=== PATIENT | female | born 1945 | race Caucasian/White ===

== ENCOUNTER 2017-04-26 13:02 | Inpatient (IN) | payer MEDICARE, BC ==
--- NOTE | 2017-04-26 14:04 | EDM.PDOC ---
ED HPI GENERAL MEDICAL PROBLEM - General Chief Complaint: Lower Extremity Injury/Pain Stated Complaint: LT LEG NUMB Time Seen by Provider: 04/26/17 13:50 Source of Information: Reports: Patient History Limitations: Reports: Other (No old records available) - History of Present Illness INITIAL COMMENTS - FREE TEXT/NARRATIVE: 71 yo female who smoked until very recently presents with several days of somewhat progressive L distal leg and foot numbness, aching, and a foot drop. Has not fallen, but is more unsteady on her feet than normal. The foot drop has made her almost trip a few times. Is from [place] and here. Has no local doctor. Is going home to [place] on Sunday. No HUTCHISON. Has a prosthetic heart valve and is on Plavix. No PHx of CVA. L calf also hurts when she walks. Foot drop tends to wax and wane. Has a pHx of anemia and thinks she may be borderline anemic now. Onset: Gradual Onset Date: 04/20/17 Duration: Day(s): Location: Reports: Lower Extremity, Left Quality: Reports: Ache (worse at night. ) Severity: Moderate Improves with: Reports: None Worsens with: Reports: Other (? time) Context: Reports: Other (Life long smoker) Associated Symptoms: Reports: Weakness (to dorsiflexion of L foot). 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 (see below) (none) Left Leg Pain Score (Numeric/FACES): 5 - Related Data Allergies Allergy/AdvReac Type Severity Reaction Status Date / Time No Known Allergies Allergy Verified 04/26/17 13:32 Home Meds: Home Meds Aspirin 325 mg PO DAILY 04/26/17 [History] Clopidogrel [Plavix] 75 mg PO DAILY 04/26/17 [History] Losartan/Hydrochlorothiazide [Losartan-HCTZ 50-12.5 MG] 1 each PO DAILY [History] Past Medical History HEENT History: Reports: Cataract Cardiovascular History: Reports: Heart Murmur, Hypertension 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) Other OB/BYN History: uterine tumors Oncologic (Cancer) History: Reports: Uterine Other Oncologic History: benign tumor - Past Surgical History HEENT Surgical History: Reports: Cataract Surgery Cardiovascular Surgical History: Reports: Valve Replacement Female Surgical History: Reports: Hysterectomy, Salpingo-Oophorectomy Social & Family History - Tobacco Use Smoking Status *Q: Former Smoker Used Tobacco, but Quit: Yes Month Tobacco Last Used: 2 days ago - Caffeine Use Caffeine Use: Reports: Coffee - Recreational Drug Use Recreational Drug Use: No Review of Systems - Review of Systems Review Of Systems: See Below Constitutional: Reports: No Symptoms Eyes: Reports: No Symptoms Ears: Reports: No Symptoms, Previous Injury Mouth/Throat: Reports: No Symptoms Respiratory: Reports: No Symptoms Cardiovascular: Reports: No Symptoms GI/Abdominal: Reports: No Symptoms Genitourinary: Reports: No Symptoms Musculoskeletal: Reports: Leg Pain (distal L leg ache, worse at night) Skin: Reports: No Symptoms Neurological: Reports: Numbness (L distal leg and foot.), Difficulty Walking ( due to L foot drop), Gait Disturbance (more unsteady recently.). Denies: Confusion, Dizziness, Headache, Seizure, Syncope, Trouble Speaking, Change in Speech Psychiatric: Reports: No Symptoms ED EXAM, GENERAL - Physical Exam Exam: See Below Exam Limited By: No Limitations General Appearance: Alert, WD/WN, No Apparent Distress Eye Exam: Bilateral Eye: EOMI, Normal Inspection, PERRL Ears: Normal External Exam, Normal Canal, Hearing Grossly Normal, Normal TMs Ear Exam: Bilateral Ear: Auricle Normal, Canal Normal, TM normal Nose: Normal Inspection, Normal Mucosa, No Blood Throat/Mouth: Normal Inspection, Normal Lips, Normal Teeth, Normal Oropharynx, Normal Voice, No Airway Compromise Head: Atraumatic, Normocephalic Neck: Normal Inspection, Supple, Other (No carotid bruits) Respiratory/Chest: No Respiratory Distress, Lungs Clear, Normal Breath Sounds, No Accessory Muscle Use Cardiovascular: Regular Rate, Rhythm, No Edema, No JVD, Systolic Murmur. No: Normal Peripheral Pulses, No Murmur, JVD, Bradycardia, Tachycardia Peripheral Pulses: 0: Posterior Tibial (L), Posterior Tibial (R), Dorsalis Pedis (L), Dorsalis Pedis (R), 1+: Popliteal (L), Popliteal (R), 2+: Brachial (L ), Brachial (R), Radial (L), Radial (R), 3+: Carotid (L) (No murmur), Carotid (R ) (No murmur), Femoral (L), Femoral (R) GI/Abdominal: Normal Bowel Sounds, Soft, Non-Tender, No Distention Back Exam: Normal Inspection. No: CVA Tenderness (R), CVA Tenderness (L) Extremities: Normal Inspection, Normal Range of Motion, Non-Tender, No Pedal Edema, Other (L foot colder than the R foot. Weak dorsiflexion L foot.) Neurological: Alert, Oriented, CN II-XII Intact, Normal Cognition, No Motor/ Sensory Deficits, Other (Strength 5/5 in all groups except 1/5 to dorsiflexion of L foot. ) Psychiatric: Normal Affect, Normal Mood Skin Exam: Warm, Dry, Intact, Normal Color, No Rash Lymphatic: No Adenopathy Course - Vital Signs Text/Narrative:: Dr. Rojas called @ 1504h Last Recorded V/S: Last Vital Signs Temp 37.2 C 04/26/17 13:30 Pulse 116 H 04/26/17 14:36 Resp 18 04/26/17 14:36 BP 126/68 04/26/17 14:36 Pulse Ox 100 04/26/17 14:36 - Orders/Labs/Meds Orders: Active Orders 24 hr Category Date Time Status Cardiac Monitoring [RC] .As Directed Care 04/26/17 13:55 Active VL Duplex Carotid Comp [US] Stat Exams 04/26/17 13:57 Ordered Hemoccult [OCCULT BLOOD DIAGNOSTIC] [OP] Stat Lab 04/26/17 14:23 Uncollected Labs: Laboratory Tests 04/26/17 04/26/17 04/26/17 Range/Units 14:10 14:10 14:34 WBC 4.8 (4.5-11.0) K/uL RBC 2.40 L (3.30-5.50) M/uL Hgb 5.3 L* (12.0-15.0) g/dL Hct 18.7 L (36.0-48.0) % MCV 78 L (80-98) fL MCH 22 L (27-31) pg MCHC 28 L (32-36) % Plt Count 412 H (150-400) K/uL Sodium 134 L (140-148) mmol/L Potassium 3.2 L (3.6-5.2) mmol/L Chloride 97 L (100-108) mmol/L Carbon Dioxide 29 (21-32) mmol/L Anion Gap 11.2 (5.0-14.0) mmol/L BUN 17 (7-18) mg/dL Creatinine 1.5 H (0.6-1.0) mg/dL Est Cr Clr Drug Dosing 31.74 mL/min Estimated GFR (MDRD) 34 L (>60) Glucose 105 (74-106) mg/dL Calcium 8.4 L (8.5-10.1) mg/dL Troponin I < 0.017 (0.000-0.056) ng/mL Urine Color Yellow Urine Appearance Clear Urine pH 6.0 (4.5-8.0) Ur Specific Palmer 1.010 (1.008-1.030) Urine Protein Negative (NEGATIVE) mg/dL Urine Glucose (UA) Normal (NEGATIVE) mg/dL Urine Ketones Negative (NEGATIVE) mg/dL Urine Occult Blood Negative (NEGATIVE) Urine Nitrite Negative (NEGATIVE) Urine Bilirubin Negative (NEGATIVE) Urine Urobilinogen Normal (NORMAL) mg/dL Ur Leukocyte Esterase Negative (NEGATIVE) Urine RBC 0-5 (0-5) Urine WBC 0-5 (0-5) Ur Epithelial Cells Rare Amorphous Sediment Not seen Urine Bacteria Not seen Urine Mucus Not seen - Radiology Interpretation Free Text/Narrative:: Negative head CT scan CT Results Date: 04/26/17 CT Results Time: 14:50 Departure - Departure Time of Disposition: 15:10 Disposition: Refer to Observation Condition: Fair Clinical Impression: Claudication, Hypokalemia, Tobacco abuse Anemia Qualifiers: Anemia type: unspecified type Qualified Code(s): D64.9 - Anemia, unspecified - Discharge Information Referrals: PCP,None [Primary Care Provider] - Forms: ED Department Discharge - My Orders Last 24 Hours: My Active Orders 04/26/17 13:55 Cardiac Monitoring [RC] .As Directed 04/26/17 13:57 VL Duplex Carotid Comp [US] Stat 04/26/17 14:23 Hemoccult [OCCULT BLOOD DIAGNOSTIC] [OP] Stat - Assessment/Plan Last 24 Hours: My Active Orders 04/26/17 13:55 Cardiac Monitoring [RC] .As Directed 04/26/17 13:57 VL Duplex Carotid Comp [US] Stat 04/26/17 14:23 Hemoccult [OCCULT BLOOD DIAGNOSTIC] [OP] Stat
--- NOTE | 2017-04-26 14:43 | CT ---
Head wo Cont INDICATION: Left foot numbness with foot drop for several days. COMPARISON: None FINDINGS: No acute intracranial hemorrhage, mass, or edema. Generalized cerebral and cerebellar volum e loss. Calcification of the falx is of no clinical significance. Minimal chronic white matter change s. Chronic lacunar infarcts versus prominent perivascular spaces in bilateral basal ganglia. Remainde r unremarkable. IMPRESSION: No acute intracranial abnormality.
[2017-04-26] MEDS ORDERED: Bisacodyl 5 MG Tab PO ONE ×2 (17:00→21:00)
[2017-04-26] MEDS ORDERED: Sodium Chloride 0.9% 10 ML Syringe FLUSH PRN (17:31)
[2017-04-26] MEDS ORDERED: Ondansetron 4 MG/2 ML SDV IV PRN (17:31)
[2017-04-26] MEDS ORDERED: Albuterol 0.083% 2.5 MG/3 ML Neb Soln NEB PRN (17:31)
[2017-04-26] MEDS ORDERED: Acetaminophen 325 MG Tab PO PRN (17:31)
[2017-04-26] MEDS ORDERED: Magnesium Hydroxide 400 MG/5 ML Susp 30 ML Cup PO PRN (17:31)
[2017-04-26] MEDS ORDERED: Polyethylene Glycol 3350 Powder 17 GM Packet PO PRN (17:31)
[2017-04-26] MEDS ORDERED: Docusate Sodium 100 MG Cap PO PRN (17:31)
[2017-04-26] MEDS ORDERED: Potassium Chloride 20 MEQ Tab.ER PO ONE (17:33)
[2017-04-26] MEDS ORDERED: Potassium Chloride 40 MEQ in Premix Bag 1 BAG IV ONE (17:33)
[2017-04-26] MEDS: Nicotine 21 MG/24 Hr Patch TRDERM SCH (17:50)
[2017-04-26] MEDS: Pantoprazole 40 MG Vial IV SCH (17:51)
[2017-04-26] MEDS ORDERED: Polyethylene Glycol 3350 Powder 238 GM Bot PO ONE (18:00)
--- NOTE | 2017-04-26 18:02 | PCM.HP ---
H&P History of Present Illness - General Date of Service: 04/26/17 Admit Problem/Dx: Admission Diagnosis/Problem Admission Diagnosis/Problem Anemia Source of Information: Patient, Provider, RN Notes Reviewed History Limitations: Reports: No Limitations - History of Present Illness Initial Comments - Free Text/Narative: Ms. Austin is a 71-year-old woman who is admitted through the emergency department with symptoms of progressive weakness, dyspnea, lightheadedness as well as left foot weakness and paresthesias. She is from [place] but spends the summer months in [place], these symptoms have progressed over the past several weeks but she is been waiting to get back to [place] to have them evaluated. Symptoms in her left foot progressed the point where she thought she had to have something done so she presented to the emergency room today. On evaluation she has an obvious left foot drop and there are no palpable pulses in the left ankle foot or at the knee. Laboratory studies show evidence of chronic kidney disease as well as severe microcytic anemia. She denies any history of hematemesis melena or hematochezia. She has a known history of peripheral arterial disease but denies any history of coronary artery disease or congestive heart failure. She is status post aortic valve replacement with a bioprosthetic valve. She has had previous angioplasty with stent placement in the left leg for peripheral arterial disease. 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) Other OB/BYN History: uterine tumors Oncologic (Cancer) History: Reports: Uterine Other Oncologic History: benign tumor - Past Surgical History HEENT Surgical History: Reports: Cataract Surgery Cardiovascular Surgical History: Reports: Valve Replacement Female Surgical History: Reports: Hysterectomy, Salpingo-Oophorectomy Social & Family History - Tobacco Use Smoking Status *Q: Former Smoker Used Tobacco, but Quit: Yes Month Tobacco Last Used: 2 days ago - Caffeine Use Caffeine Use: Reports: Coffee - Recreational Drug Use Recreational Drug Use: No H&P Review of Systems - Review of Systems: Review Of Systems: See Below General: Reports: Weakness. Denies: Fever, Chills HEENT: Reports: No Symptoms Pulmonary: Reports: Shortness of Breath. Denies: Wheezing, Pleuritic Chest Pain , Cough, Sputum Cardiovascular: Reports: Dyspnea on Exertion, Lightheadedness. Denies: Chest Pain, Palpitations, Orthopnea, PND, Edema, Syncope Gastrointestinal: Denies: Abdominal Pain, Black Stool, Bloody Stool, Diarrhea, Hematemesis, Nausea, Vomiting Genitourinary: Reports: No Symptoms Musculoskeletal: Reports: No Symptoms Skin: Reports: No Symptoms Psychiatric: Reports: No Symptoms Neurological: Reports: Numbness, Paresthesia, Difficulty Walking, Gait Disturbance Hematologic/Lymphatic: Reports: Anemia Immunologic: Reports: No Symptoms Exam - Exam Exam: See Below - Vital Signs Vital Signs: Last Vital Signs Temp 99.0 F 04/26/17 13:30 Pulse 89 04/26/17 17:07 Resp 18 04/26/17 14:36 BP 132/57 L 04/26/17 17:07 Pulse Ox 100 04/26/17 14:36 Weight: 135 lb 9.349 oz - Exam General: Alert, Oriented, Cooperative, Mild Distress HEENT: Conjunctiva Clear, Hearing Intact, Mucosa Moist & [place] [address], Normal Nasal Septum, Posterior Pharynx Clear, Pupils Equal Neck: Supple, Trachea Midline, +2 Carotid Pulse wo Bruit Lungs: Clear to Auscultation, Decreased Breath Sounds. No: Crackles, Rales, Rhonchi, Wheezing Cardiovascular: Regular Rate, Regular Rhythm, Normal S1, Normal S2, Systolic Murmur. No: Irregular Rhythm, Bradycardia, Tachycardia, Diastolic Murmur GI/Abdominal Exam: Normal Bowel Sounds, Soft, Non-Tender, No Distention Back Exam: Normal Inspection, Full Range of Motion, NT Extremities: Normal Inspection, No Pedal Edema, Slow Capillary Refill Skin: Warm, Dry, Intact Neurological: Cranial Nerves Intact, Normal Speech, Other (Left foot drop with decreased sensation) - Patient Data Result Diagrams: 04/26/17 14:10 04/26/17 14:10 Angelo Results Last 24 hrs: Microbiology 04/26/17 16:04 Stool Occult Blood (ANGELO) - Final Stool / Feces *Q Meaningful Use (ADM) - VTE *Q VTE Criteria *Q: VTE Mechanical Contraindications *Q: Bilateral Lower Ischemia VTE Pharmacological Contraindications *Q: Patient has Severe Anemia - VTE Risk Assess *Q Each Risk Factor Represents 1 Point: Abnormal Pulmonary Function (COPD) Total Score 1 Point Risk Factors: 1 Each Risk Factor Represents 2 Points: Age 60 - 74 Years, Previous Malignancy Total Score 2 Point Risk Factors: 4 Each Risk Factor Represents 3 Points: None Total Score 3 Point Risk Factors: 0 Each Risk Factor Represents 5 Points: None Total Score 5 Point Risk Factors: 0 Venous Thromboembolism Risk Factor Score *Q: 5 - Stroke *Q Stroke Criteria *Q: - AMI *Q AMI Criteria *Q: Problem List Initiated/Reviewed/Updated: Yes Orders Last 24hrs: Active Orders 24 hr Category Date Time Status Patient Status [ADT] Routine ADT 04/26/17 17:31 Active Notify Provider Consults [RC] ASDIRECTED Care 04/26/17 17:31 Active Notify Provider Vital Signs [RC] ASDIRECTED Care 04/26/17 17:31 Active Oxygen Therapy [RC] PRN Care 04/26/17 17:31 Active Peripheral IV Care [RC] . DIRECTED Care 04/26/17 17:31 Active RT Aerosol Therapy [RC] ASDIRECTED Care 04/26/17 17:31 Active Up With Assistance [RC] ASDIRECTED Care 04/26/17 17:31 Active Up to Chair [RC] QID Care 04/26/17 17:31 Active VTE/DVT Education [RC] Per Unit Routine Care 04/26/17 17:31 Active Vital Signs [RC] Q4H Care 04/26/17 17:31 Active Consult to Physician [CONS] Routine Cons 04/26/17 17:31 Ordered PT Evaluation and Treatment [CONS] Routine Cons 04/26/17 17:31 Active Clear Liquid Diet [DIET] Diet 04/26/17 Lunch Active Nothing per Oral After Midnight Diet [DIET] Diet 04/27/17 Breakfast Active Lumbar Spine Comp wo Cont [MR] Stat Exams 04/27/17 08:00 Ordered VL Duplex Lwr Ext Art Ltd Lt [US] Stat Exams 04/27/17 07:00 Ordered BASIC METABOLIC PANEL,BMP [CHEM] AM Lab 04/27/17 05:11 Ordered CBC WITH AUTO DIFF [HEME] AM Lab 04/27/17 05:11 Ordered HGB [HEMOGLOBIN] [HEME] Stat Lab 04/26/17 23:00 Ordered MAGNESIUM [CHEM] AM Lab 04/27/17 05:11 Ordered Acetaminophen [Tylenol] Med 04/26/17 17:31 Active 650 mg PO Q4H PRN Albuterol [Proventil Neb Soln] Med 04/26/17 17:31 Active 2.5 mg NEB Q4H PRN Bisacodyl [Dulcolax] Med 04/26/17 21:00 Once 10 mg PO ONETIME ONE Docusate Sodium [Colace] Med 04/26/17 17:31 Active 100 mg PO BID PRN Losartan [Cozaar] Med 04/27/17 09:00 Active 50 mg PO DAILY Magnesium Hydroxide [Milk of Magnesia] Med 04/26/17 17:31 Active 30 ml PO Q12H PRN Nicotine [Habitrol] Med 04/26/17 17:31 Active 21 mg TRDERM DAILY Ondansetron [Zofran] Med 04/26/17 17:31 Active 4 mg IV Q4H PRN Pantoprazole [ProTONIX IV] Med 04/26/17 18:00 Active 40 mg IV Q12H Polyethylene Glycol 3350 [MiraLAX] Med 04/26/17 17:31 Active 17 gm PO DAILY PRN Polyethylene Glycol 3350 [MiraLAX] Med 04/26/17 18:00 Once 238 gm PO ONETIME ONE Potassium Chloride [KCL 40 MEQ in Water 100 ML] 40 meq Med 04/26/17 17:33 Active Premix Bag 1 bag IV ONETIME Sodium Chloride 0.9% [Normal Saline] 1,000 ml Med 04/26/17 17:31 Active IV ASDIRECTED Sodium Chloride 0.9% [Saline Flush] Med 04/26/17 17:31 Active 10 ml FLUSH ASDIRECTED PRN oxyCODONE Med 04/26/17 17:31 Active 5 mg PO Q4H PRN Peripheral IV Insertion Adult [OM.PC] Routine Oth 04/26/17 17:31 Ordered VTE Mechanical Contraindications [AST] Per Unit Routine Oth 04/26/17 17:31 Ordered VTE Pharmacological Contraindications [AST] Per Unit Oth 04/26/17 17:31 Ordered Routine Resuscitation Status Routine Resus Stat 04/26/17 15:56 Ordered Medication Orders Acetaminophen (Tylenol) 650 mg PO Q4H PRN PRN Reason: Pain (Mild 1-3)/fever Albuterol (Proventil Neb Soln) 2.5 mg NEB Q4H PRN PRN Reason: Shortness Of Breath/wheezing Aspirin (Ecotrin) 325 mg PO DAILY [facility] Bisacodyl (Dulcolax) 10 mg PO ONETIME ONE Stop: 04/26/17 21:01 Clopidogrel Bisulfate (Plavix) 75 mg PO DAILY [facility] Docusate Sodium (Colace) 100 mg PO BID PRN PRN Reason: Constipation Hydrochlorothiazide (Hydrochlorothiazide) 12.5 mg PO DAILY [facility] Ferric Sodium Gluconate Complex 250 mg/ Sodium Chloride 120 mls @ 60 mls/hr IV Q24H [facility] Stop: 04/27/17 19:59 Sodium Chloride (Normal Saline) 1,000 mls @ 75 mls/hr IV ASDIRECTED [facility] Potassium Chloride 40 meq/ (Premix) 100 mls @ 25 mls/hr IV ONETIME ONE Stop: 04/26/17 21:32 Losartan Potassium (Cozaar) 50 mg PO DAILY [facility] Magnesium Hydroxide (Milk Of Magnesia) 30 ml PO Q12H PRN PRN Reason: Constipation Nicotine (Habitrol) 21 mg TRDERM DAILY [facility] Last Admin: 04/26/17 17:50 Dose: 21 mg Ondansetron HCl (Zofran) 4 mg IV Q4H PRN PRN Reason: Nausea/Vomiting Oxycodone HCl (Oxycodone) 5 mg PO Q4H PRN PRN Reason: Pain (moderate 4-6) Pantoprazole Sodium (Protonix Iv) 40 mg IV Q12H [facility] Last Admin: 04/26/17 17:51 Dose: 40 mg Polyethylene Glycol (Miralax) 238 gm PO ONETIME ONE Stop: 04/26/17 18:01 Last Admin: 04/26/17 17:51 Dose: 1 bottle Polyethylene Glycol (Miralax) 17 gm PO DAILY PRN PRN Reason: Constipation Sodium Chloride (Saline Flush) 10 ml FLUSH ASDIRECTED PRN PRN Reason: Keep Vein Open Assessment/Plan Comment:: ASSESSMENT AND PLAN SEVERE MICROCYTIC ANEMIA-she does have a previous history of anemia but not to this extent. MCV is significantly decreased, associated with a very low iron level. Likely that this is chronic, need to rule out GI source. -Transfuse 2 units of red blood cells -2 units of red blood cells on hold for future use -Follow-up hemoglobin level tonight and again in a.m. -Protonix 40 mg IV every 12 hours -Colonoscopy prep -Consult Dr. Tipton for EGD and colonoscopy in a.m. LEFT FOOT WEAKNESS AND PARESTHESIAS-specific etiology not apparent on exam, CT scan of the head shows no evidence of recent CVA. Possible nerve root impingement versus peripheral arterial disease complicated by severe anemia. -Arterial Doppler studies of the left leg in a.m. -MRI of the lumbar and sacral spine in a.m. -Physical therapy consult, she will need a foot brace for her foot drop -Consider MRI of the brain HYPOKALEMIA -IV and oral potassium replacement -Recheck potassium level in a.m. CHRONIC KIDNEY DISEASE STAGE III -Closely monitor urine output and renal function during hospital stay PERIPHERAL ARTERIAL DISEASE -Arterial Doppler studies in a.m. as above -Continue outpatient therapy with aspirin and Plavix STATUS POST AORTIC VALVE REPLACEMENT WITH BIOPROSTHETIC VALVE MAINTENANCE ISSUES -DVT prophylaxis; not a candidate for SCUDs because of peripheral arterial disease, not a candidate for anticoagulation because severe anemia -GI prophylaxis; Protonix as above -Robles catheter; not indicated -Nutrition; clear liquid diet, nothing by mouth after midnight -Nicotine dependence; 21 mg nicotinic patch CODE STATUS-FULL CODE ADMISSION STATUS-patient will be admitted to inpatient status, expect at least a 2 night hospital stay for evaluation and management of problems as outlined above. At the time of this admission I do not reasonably expected evaluation and management of this problem will require more than a 96 hour hospital stay. DISPOSITION-anticipate discharge to home after the hospital stay. PRIMARY CARE PROVIDER-she does not have a local primary care provider, receives primary care in [place]
[2017-04-26] MEDS: Sodium Chloride 0.9% 1,000 ML IV SCH (19:47)
[2017-04-26] MEDS: Sodium Ferric Gluconate Cmplex 250 MG in Sodium Chloride 0.9% 100 ML IV SCH (19:59)
[2017-04-26] MEDS ORDERED: Lidocaine 1% 50 ML MDV SCH (22:45)
[2017-04-26] MEDS: Potassium Chloride 20 MEQ in Premix Bag 1 BAG IV SCH (23:25)
[2017-04-27] MEDS: oxyCODONE 5 MG Tab PO PRN ×2 (00:11→20:11)
[2017-04-27] MEDS: Potassium Chloride 20 MEQ in Premix Bag 1 BAG IV SCH (01:57)
[2017-04-27] MEDS: Pantoprazole 40 MG Vial IV SCH ×2 (06:21→17:55)
[2017-04-27] MEDS: Sodium Chloride 0.9% 1,000 ML IV SCH ×2 (08:26→13:13)
--- NOTE | 2017-04-27 08:38 | US ---
VL Duplex Carotid Comp INDICATION: Subacute CVA. COMPARISON: None FINDINGS: Mild/moderate atheromatous plaque in bilateral carotid bifurcations. Peak systolic velocit y in the right internal carotid artery measures 132 cm/sec, and the left internal carotid artery 173 cm/sec. ICA/CCA ratio measures 1.7 on the right and 1.8 on the left. Normal low-resistance waveforms in bilateral internal carotid arteries. The left and right vertebral arteries are patent with antegra de flow. IMPRESSION: 1. 50-69% stenosis right ICA. 2. 50-69% stenosis left ICA.
[2017-04-27] MEDS: Losartan 50 MG Tab PO SCH (08:58)
[2017-04-27] MEDS ORDERED: Magnesium Sulfate/Water 2 GM in Premix Bag 1 BAG IV ONE (09:00)
--- NOTE | 2017-04-27 09:06 | US ---
VL Duplex Lwr Ext Art Ltd Lt INDICATION: Hx of PAD, pain, numbness, weakness left foot FINDINGS: A stent is visualized in the left common femoral artery that is patent with a peak systolic velocity of 180 cm/s. Distal to the stent, there are monophasic waveforms throughout the left lower extremity. Velocities range from 13 cm/s in the posterior tibial, to 96 cm/s in the profunda femoris and 94 cm/s in the proximal SFA. Of note, a collateral vessel is seen extending from the mid/distal S FA. Dorsalis pedis flow could not be visualized. IMPRESSION: Monophasic waveforms throughout the left lower extremity. Consider referral for conventio nal angiogram.
[2017-04-27] MEDS ORDERED: Propofol 200 MG/20 ML SDV ONE (11:49)
[2017-04-27] MEDS ORDERED: fentaNYL 100 MCG/2 ML SDV ONE (11:49)
[2017-04-27] MEDS ORDERED: Midazolam 1 MG/ML 2 ML SDV ONE (11:50)
[2017-04-27] MEDS ORDERED: Zolpidem 5 MG Tab PO PRN (14:03)
[2017-04-27] MEDS: Hydrochlorothiazide 12.5 MG Cap PO SCH (14:21)
[2017-04-27] MEDS: Clopidogrel 75 MG Tab PO SCH (14:22)
[2017-04-27] MEDS: Aspirin 325 MG Tab.EC PO SCH (14:22)
[2017-04-27] MEDS: Magnesium Oxide 400 MG Tab PO SCH ×2 (14:22→20:10)
[2017-04-27] MEDS: Nicotine 21 MG/24 Hr Patch TRDERM SCH (16:04)
[2017-04-27] MEDS: Sodium Ferric Gluconate Cmplex 250 MG in Sodium Chloride 0.9% 100 ML IV SCH (18:02)
--- NOTE | 2017-04-27 18:04 | PCM.PN ---
- General Info Date of Service: 04/27/17 Functional Status: Reports: Pain Controlled, Tolerating Diet, Urinating - Review of Systems General: Reports: Weakness. Denies: Fever, Chills Pulmonary: Reports: No Symptoms Cardiovascular: Reports: No Symptoms Gastrointestinal: Reports: No Symptoms Musculoskeletal: Reports: Leg Pain, Foot Pain Systems Review Comment:: Ms. Austin has been stable since admission, hemoglobin has come up to 8.5 following transfusion of 2 units of red blood cells. EGD was performed earlier today by Dr. Tipton, she was found to have an esophageal ulcer, gastritis, duodenitis, and diverticulosis. He assumes source of chronic blood loss is thought to be her esophageal ulcer. She continues to experience significant pain in her left lower leg and foot, arterial Doppler studies show only monophasic flow throughout the leg. She also continues to experience significant weakness in lower leg and foot with persistent foot drop and paresthesias. MRI has been performed, formal report is pending. - Patient Data Vitals - Most Recent: Last Vital Signs Temp 98.1 F 04/27/17 14:00 Pulse 72 04/27/17 14:19 Resp 18 04/27/17 14:19 BP 111/56 L 04/27/17 14:19 Pulse Ox 95 04/27/17 14:19 Weight - Most Recent: 135 lb 9.349 oz I&O - Last 24 Hours: Intake & Output 04/27/17 04/27/17 04/27/17 06:59 14:59 22:59 Intake Total 3040 200 Output Total 700 Balance 3040 -500 Lab Results Last 24 Hours: Laboratory Results - last 24 hr 04/27/17 04/27/17 04/27/17 Range/Units 00:25 05:15 05:15 WBC 4.2 L (4.5-11.0) K/uL RBC 3.43 (3.30-5.50) M/uL Hgb 8.6 L D 8.5 L (12.0-15.0) g/dL Hct 26.8 L (36.0-48.0) % MCV 78 L (80-98) fL MCH 25 L (27-31) pg MCHC 32 (32-36) % Plt Count 364 (150-400) K/uL Neut % (Auto) 51 (36-66) % Lymph % (Auto) 26 (24-44) % White % (Auto) 20 H (2-6) % Eos % (Auto) 3 (2-4) % Baso % (Auto) 0 (0-1) % Sodium 138 L (140-148) mmol/L Potassium 4.6 (3.6-5.2) mmol/L Chloride 105 (100-108) mmol/L Carbon Dioxide 26 (21-32) mmol/L Anion Gap 11.6 (5.0-14.0) mmol/L BUN 11 (7-18) mg/dL Creatinine 1.2 H (0.6-1.0) mg/dL Est Cr Clr Drug Dosing 39.67 mL/min Estimated GFR (MDRD) 44 L (>60) Glucose 85 (74-106) mg/dL Calcium 8.1 L (8.5-10.1) mg/dL Magnesium 1.5 L (1.8-2.4) mg/dL Angelo Results Last 24 Hours: Microbiology 04/26/17 16:04 Stool Occult Blood (ANGELO) - Final Stool / Feces Med Orders - Current: Current Medications Acetaminophen (Tylenol) 650 mg PO Q4H PRN PRN Reason: Pain (Mild 1-3)/fever Last Admin: 04/26/17 22:42 Dose: 650 mg Albuterol (Proventil Neb Soln) 2.5 mg NEB Q4H PRN PRN Reason: Shortness Of Breath/wheezing Aspirin (Ecotrin) 325 mg PO DAILY [facility] Last Admin: 04/27/17 14:22 Dose: 325 mg Clopidogrel Bisulfate (Plavix) 75 mg PO DAILY [facility] Last Admin: 04/27/17 14:22 Dose: 75 mg Docusate Sodium (Colace) 100 mg PO BID PRN PRN Reason: Constipation Hydrochlorothiazide (Hydrochlorothiazide) 12.5 mg PO DAILY [facility] Last Admin: 04/27/17 14:21 Dose: 12.5 mg Ferric Sodium Gluconate Complex 250 mg/ Sodium Chloride 120 mls @ 60 mls/hr IV Q24H [facility] Stop: 04/27/17 19:59 Last Admin: 04/26/17 19:59 Dose: 60 mls/hr Losartan Potassium (Cozaar) 50 mg PO DAILY [facility] Last Admin: 04/27/17 08:58 Dose: 50 mg Magnesium Hydroxide (Milk Of Magnesia) 30 ml PO Q12H PRN PRN Reason: Constipation Magnesium Oxide (Magnesium Oxide) 400 mg PO BID [facility] Last Admin: 04/27/17 14:22 Dose: 400 mg Nicotine (Habitrol) 21 mg TRDERM DAILY [facility] Last Admin: 04/27/17 16:04 Dose: 21 mg Ondansetron HCl (Zofran) 4 mg IV Q4H PRN PRN Reason: Nausea/Vomiting Oxycodone HCl (Oxycodone) 5 mg PO Q4H PRN PRN Reason: Pain (moderate 4-6) Last Admin: 04/27/17 00:11 Dose: 5 mg Pantoprazole Sodium (Protonix Iv) 40 mg IV Q12H [facility] Last Admin: 04/27/17 17:55 Dose: 40 mg Polyethylene Glycol (Miralax) 17 gm PO DAILY PRN PRN Reason: Constipation Sodium Chloride (Saline Flush) 10 ml FLUSH ASDIRECTED PRN PRN Reason: Keep Vein Open Zolpidem Tartrate (Ambien) 5 mg PO BEDTIME PRN PRN Reason: Insomnia Discontinued Medications Bisacodyl (Dulcolax) 10 mg PO ONETIME ONE Stop: 04/26/17 17:01 Last Admin: 04/26/17 17:50 Dose: 10 mg Bisacodyl (Dulcolax) 10 mg PO ONETIME ONE Stop: 04/26/17 21:01 Last Admin: 04/26/17 20:07 Dose: 10 mg Fentanyl (Sublimaze) Confirm Administered Dose 100 mcg .ROUTE .STK-MED ONE Stop: 04/27/17 11:50 Sodium Chloride (Normal Saline) 1,000 mls @ 75 mls/hr IV ASDIRECTED [facility] Last Admin: 04/27/17 13:13 Dose: 75 mls/hr Potassium Chloride 40 meq/ (Premix) 100 mls @ 25 mls/hr IV ONETIME ONE Stop: 04/26/17 21:32 Last Admin: 04/27/17 16:43 Dose: Not Given Potassium Chloride 20 meq/ (Premix) 100 mls @ 50 mls/hr IV Q2H [facility] Stop: 04/27/17 02:36 Last Admin: 04/27/17 01:57 Dose: 50 mls/hr Magnesium Sulfate 2 gm/ Premix 50 mls @ 25 mls/hr IV ONETIME ONE Stop: 04/27/17 10:59 Last Admin: 04/27/17 08:42 Dose: 25 mls/hr Lidocaine HCl (Xylocaine 1%) 2 ml .XX ASDIRECTED [facility] Stop: 04/27/17 03:00 Lidocaine HCl (Xylocaine-Mpf 1%) Confirm Administered Dose 5 ml .ROUTE .STK-MED ONE Stop: 04/26/17 22:46 Last Admin: 04/26/17 23:26 Dose: 2 ml Midazolam HCl (Versed 1 Mg/Ml) Confirm Administered Dose 2 mg .ROUTE .STK-MED ONE Stop: 04/27/17 11:51 Polyethylene Glycol (Miralax) 238 gm PO ONETIME ONE Stop: 04/26/17 18:01 Last Admin: 04/26/17 17:51 Dose: 1 bottle Potassium Chloride (Klor-Con M20) 40 meq PO ONETIME ONE Stop: 04/26/17 17:34 Last Admin: 04/26/17 17:50 Dose: 40 meq Propofol (Diprivan 20 Ml) Confirm Administered Dose 200 mg .ROUTE .STK-MED ONE Stop: 04/27/17 11:50 - Exam General: Alert, Oriented, Cooperative, Mild Distress Lungs: Clear to Auscultation, Normal Respiratory Effort Cardiovascular: Regular Rate, Regular Rhythm, No Murmurs GI/Abdominal Exam: Normal Bowel Sounds, Soft, Non-Tender, No Distention Extremities: Normal Inspection, No Pedal Edema Skin: Warm, Dry, Intact - Problem List Review Problem List Initiated/Reviewed/Updated: Yes - My Orders Last 24 Hours: My Active Orders 04/26/17 17:31 Patient Status [ADT] Routine Notify Provider Consults [RC] ASDIRECTED Notify Provider Vital Signs [RC] ASDIRECTED Oxygen Therapy [RC] PRN Peripheral IV Care [RC] Q12H RT Aerosol Therapy [RC] ASDIRECTED Up With Assistance [RC] ASDIRECTED Up to Chair [RC] QID VTE/DVT Education [RC] Per Unit Routine Vital Signs [RC] Q4H Consult to Physician [CONS] Routine PT Evaluation and Treatment [CONS] Routine Acetaminophen [Tylenol] 650 mg PO Q4H PRN Albuterol [Proventil Neb Soln] 2.5 mg NEB Q4H PRN Docusate Sodium [Colace] 100 mg PO BID PRN Magnesium Hydroxide [Milk of Magnesia] 30 ml PO Q12H PRN Nicotine [Habitrol] 21 mg TRDERM DAILY Ondansetron [Zofran] 4 mg IV Q4H PRN Polyethylene Glycol 3350 [MiraLAX] 17 gm PO DAILY PRN Sodium Chloride 0.9% [Saline Flush] 10 ml FLUSH ASDIRECTED PRN oxyCODONE 5 mg PO Q4H PRN Peripheral IV Insertion Adult [OM.PC] Routine VTE Mechanical Contraindications [AST] Per Unit Routine VTE Pharmacological Contraindications [AST] Per Unit Routine 04/26/17 18:00 Pantoprazole [ProTONIX IV] 40 mg IV Q12H 04/27/17 08:00 Lumbar Spine Comp wo Cont [MR] Stat 04/27/17 09:00 Losartan [Cozaar] 50 mg PO DAILY Magnesium Oxide 400 mg PO BID 04/27/17 14:03 Zolpidem [Ambien] 5 mg PO BEDTIME PRN 04/27/17 17:52 Convert IV to Saline Lock [OM.PC] Routine 04/27/17 Dinner Regular Diet [DIET] 04/28/17 05:00 BASIC METABOLIC PANEL,BMP [CHEM] Timed CBC WITH AUTO DIFF [HEME] Timed MAGNESIUM [CHEM] Timed - Plan Plan:: ASSESSMENT AND PLAN SEVERE MICROCYTIC ANEMIA-hemoglobin improve following transfusion of 2 units of red blood cells. EGD and colonoscopy showed evidence of an esophageal ulcer, gastritis, duodenitis, and diverticulosis. -2 units of red blood cells on hold for future use -Follow-up hemoglobin level in a.m. -Protonix 40 mg IV every 12 hours -Colonoscopy prep -Will require follow-up EGD in 4-6 weeks to assure healing of the esophageal ulcer LEFT FOOT WEAKNESS AND PARESTHESIAS-specific etiology not apparent on exam, CT scan of the head shows no evidence of recent CVA. On arterial Doppler studies is evidence of significant arterial compromise of the left leg with monophasic flow noted throughout. MRI shows evidence of nerve root impingement to likely explain foot drop and paresthesias. -Will require follow-up with vascular interventionalists to consider angiogram of the left leg -Will require evaluation by spine surgeon concerning nerve root impingement likely causing left foot drop and paresthesias -Physical therapy consult, she will need a foot brace for her foot drop HYPOKALEMIA-potassium level normalized allowing IV and oral potassium replacement -Recheck potassium level in a.m. HYPOMAGNESEMIA -IV and oral magnesium replacement -Recheck magnesium level in a.m. CHRONIC KIDNEY DISEASE STAGE III-renal function improved following IV hydration -Closely monitor urine output and renal function during hospital stay PERIPHERAL ARTERIAL DISEASE-significant arterial disease noted left leg on arterial Doppler studies -Continue outpatient therapy with aspirin and Plavix STATUS POST AORTIC VALVE REPLACEMENT WITH BIOPROSTHETIC VALVE MAINTENANCE ISSUES -DVT prophylaxis; not a candidate for SCUDs because of peripheral arterial disease, not a candidate for anticoagulation because severe anemia -GI prophylaxis; Protonix as above -Robles catheter; not indicated -Nutrition; clear liquid diet, nothing by mouth after midnight -Nicotine dependence; 21 mg nicotinic patch CODE STATUS-FULL CODE ADMISSION STATUS-patient will be admitted to inpatient status, expect at least a 2 night hospital stay for evaluation and management of problems as outlined above. At the time of this admission I do not reasonably expected evaluation and management of this problem will require more than a 96 hour hospital stay. DISPOSITION-anticipate discharge to home after the hospital stay. PRIMARY CARE PROVIDER-she does not have a local primary care provider, receives primary care in [place]
[2017-04-28] MEDS: oxyCODONE 5 MG Tab PO PRN (04:59)
[2017-04-28] MEDS: Pantoprazole 40 MG Vial IV SCH (05:00)
[2017-04-28 07:22] VITALS: BP 138/82
[2017-04-28] MEDS: Losartan 50 MG Tab PO SCH (09:01)
[2017-04-28] MEDS: Clopidogrel 75 MG Tab PO SCH (09:02)
[2017-04-28] MEDS: Aspirin 325 MG Tab.EC PO SCH (09:02)
[2017-04-28] MEDS: Magnesium Oxide 400 MG Tab PO SCH (09:02)
[2017-04-28] MEDS: Hydrochlorothiazide 12.5 MG Cap PO SCH (09:02)
[2017-04-28] MEDS: Nicotine 21 MG/24 Hr Patch TRDERM SCH (09:02)
--- NOTE | 2017-04-28 14:39 | PCM.DCSUM1 ---
Discharge Summary - Hospital Course Brief History: Ms. Austin is a 71-year-old woman who was admitted through the emergency department for further evaluation and management of severe anemia with recent symptoms of weakness, fatigue, and shortness of breath. As well as numbness, weakness and pain in her left leg. - Discharge Data Discharge Date: 04/28/17 Discharge Disposition: Home, Self-Care 01 Condition: Stable - Discharge Diagnosis/Problem(s) (1) Iron deficiency anemia SNOMED Code(s): 13198845 ICD Code: D50.9 - IRON DEFICIENCY ANEMIA, UNSPECIFIED Status: Acute Current Visit: Yes (2) CKD (chronic kidney disease) stage 3, GFR 30-59 ml/min SNOMED Code(s): 832098073 ICD Code: N18.3 - CHRONIC KIDNEY DISEASE, STAGE 3 (MODERATE) Status: Acute Current Visit: Yes (3) Left foot drop SNOMED Code(s): 6504547, 52608348 ICD Code: M21.372 - FOOT DROP, LEFT FOOT Status: Acute Current Visit: Yes (4) Lumbar nerve root impingement SNOMED Code(s): 715674237 ICD Code: M54.16 - RADICULOPATHY, LUMBAR REGION Status: Acute Current Visit: Yes (5) Claudication of lower extremity SNOMED Code(s): 390175644, 909395315 ICD Code: I73.9 - PERIPHERAL VASCULAR DISEASE, UNSPECIFIED Status: Acute Current Visit: Yes (6) PAD (peripheral artery disease) SNOMED Code(s): 669276441 ICD Code: I73.9 - PERIPHERAL VASCULAR DISEASE, UNSPECIFIED Status: Acute Current Visit: Yes (7) Esophageal ulcer SNOMED Code(s): 69977243 ICD Code: K22.10 - ULCER OF ESOPHAGUS WITHOUT BLEEDING Status: Acute Current Visit: Yes (8) Gastritis SNOMED Code(s): 2651189 ICD Code: K29.70 - GASTRITIS, UNSPECIFIED, WITHOUT BLEEDING Status: Acute Current Visit: Yes - Patient Summary/Data Consults: Consultations 04/26/17 17:31 Consult to Physician [CONS] Routine Consulting Provider: Jose Raul Tipton Call Completed to Consulting Physician: Yes Reason for Consult: Severe anemia EGD and colonoscopy in a.m. PT Evaluation and Treatment [CONS] Routine Please Evaluate and Treat. PT Reason for Consult: Left foot drop This query below is only for informational purposes and is not editable. Hospital Course: Ms. Austin is a 71-year-old woman who presented to the emergency department with symptoms of numbness and weakness in her left leg associated with increased pain in the leg as well as generalized weakness and shortness of breath. On evaluation in the emergency department she was found to have low potassium level and severe anemia with a hemoglobin of 5.3. Symptoms of decreased sensation in the left leg and been coming on over the past several weeks and over the past week or 2 had noted weakness with with a developing foot drop on the left. She denied any symptoms of back pain and did report a history of peripheral arterial disease and previous angioplasty with stent placement in the left leg. On admission she was given IV fluids for hydration and transfused 2 units of red blood cells for management of her anemia. B-12 and folate levels were obtained and found to be within normal range, LDH was normal, but iron level was severely decreased at 3. In addition to the blood transfusion she was given 250 mg of IV iron on the day of admission and again on the day after admission. At the time of admission she was started on IV Protonix 40 mg twice daily. With these interventions her hemoglobin had increased to 8.6 and then 8.5 the following morning. Surgical consult was obtained with Dr. Tipton and an EGD as well as colonoscopy were performed. On the EGD she was found to have an esophageal ulcer which was felt to be the likely source of chronic blood loss. Also noted was gastritis and duodenitis. Colonoscopy showed evidence of diverticulosis but no other significant abnormalities. She will be discharged home on oral iron supplement twice daily as well as Protonix twice daily for 2 weeks and then once daily thereafter. On initial evaluation potassium level was found to be low and she was treated with IV and oral potassium replacement. By the time of discharge her potassium level had normalized and she will be discharged home on potassium supplement twice daily. Magnesium level was also found to be low and she was treated with IV and oral magnesium replacement, by discharge magnesium level was within normal range. She will be discharged home on oral magnesium replacement twice daily. Arterial Doppler studies were performed on the left leg and she was noted to have evidence of severe peripheral arterial disease with monophasic flow noted throughout the leg. We discussed this result, she is in the process of returning to her home in [place] and will follow up with her assistant signal maintainer there concerning her severe peripheral arterial disease. She understands that if she should develop acute onset of severe pain in the leg with loss of function and/or if the leg becomes cold she should present immediately to an emergency department for further evaluation. Was felt that she also probably had a component of nerve root impingement resulting in the numbness that she been feeling in the foot as well as the foot drop. MRI of the lumbar spine did show evidence of significant nerve root impingement is a likely cause of these problems. Again I have strongly recommended that she see someone next week for further evaluation of her nerve root impingement to see if anything further can be done for this. She was seen and evaluated by physical therapy while hospitalized and has been given a foot brace for management of her foot drop. Kidney function was monitored regularly during her hospital stay and improved following hydration. Activity and discharge will be as tolerated, she is encouraged to wear her foot and ankle brace on the left foot for management of her foot drop. She will resume her usual diet and see her primary care provider immediately on returning home. She understands that she also needs to see her vascular specialist concerning severe arterial compromise in her left leg as well as a back specialist concerning management of nerve root impingement with left foot drop. Follow-up EGD needs to be obtained in 6 weeks to recheck area ulcer in her esophagus. Biopsies obtained at the time of the EGD are pending at the time of discharge. - Patient Instructions Diet: Heart Healthy Diet Activity: As Tolerated Other/Special Instructions: Instructed patient that when she returns to [place] she should make an immediate appointment with her primary care provider , to also schedule appointments with vascular interventionalist and health specialist. She will need to have a follow-up EGD in 6 weeks to make sure that the esophageal ulcer has healed. - Discharge Plan Prescriptions/Med Rec: Ferrous Sulfate 325 mg PO BID #60 tablet Magnesium Oxide 400 mg PO BID #60 tablet oxyCODONE 5 mg PO Q4H PRN #20 tablet PRN Reason: Pain Pantoprazole Sodium [Protonix] 40 mg PO BID #30 tablet. Potassium Chloride 20 meq PO BID #60 tablet.er Home Medications: Home Meds Aspirin 325 mg PO DAILY 04/26/17 [History] Clopidogrel [Plavix] 75 mg PO DAILY 04/26/17 [History] Losartan/Hydrochlorothiazide [Losartan-HCTZ 50-12.5 MG] 1 each PO DAILY [History] Ferrous Sulfate 325 mg PO BID #60 tablet 04/28/17 [Rx] Magnesium Oxide 400 mg PO BID #60 tablet 04/28/17 [Rx] Pantoprazole Sodium [Protonix] 40 mg PO BID #30 tablet. 04/28/17 [Rx] Potassium Chloride 20 meq PO BID #60 tablet.er 04/28/17 [Rx] oxyCODONE 5 mg PO Q4H PRN #20 tablet 04/28/17 [Rx] Forms: ED Department Discharge Referrals: PCP,None [Primary Care Provider] - - Patient Data Vitals - Most Recent: Last Vital Signs Temp 97.3 F 04/28/17 07:20 Pulse 87 04/28/17 07:20 Resp 16 04/28/17 07:20 BP 138/82 04/28/17 09:01 Pulse Ox 100 04/28/17 07:20 Weight - Most Recent: 135 lb 9.349 oz I&O - Last 24 hours: Intake & Output 04/27/17 04/28/17 04/28/17 22:59 06:59 14:59 Intake Total 1321 360 Balance 1321 360 Lab Results - Last 24 hrs: Laboratory Results - last 24 hr 04/28/17 04/28/17 Range/Units 05:45 05:45 WBC 4.7 (4.5-11.0) K/uL RBC 3.24 L (3.30-5.50) M/uL Hgb 8.1 L (12.0-15.0) g/dL Hct 25.9 L (36.0-48.0) % MCV 80 (80-98) fL MCH 25 L (27-31) pg MCHC 31 L (32-36) % Plt Count 354 (150-400) K/uL Neut % (Auto) 57 (36-66) % Lymph % (Auto) 21 L (24-44) % [place] % (Auto) 18 H (2-6) % Eos % (Auto) 5 H (2-4) % Baso % (Auto) 0 (0-1) % Sodium 138 L (140-148) mmol/L Potassium 3.8 (3.6-5.2) mmol/L Chloride 105 (100-108) mmol/L Carbon Dioxide 27 (21-32) mmol/L Anion Gap 9.8 (5.0-14.0) mmol/L BUN 10 (7-18) mg/dL Creatinine 1.1 H (0.6-1.0) mg/dL Est Cr Clr Drug Dosing 43.51 mL/min Estimated GFR (MDRD) 49 L (>60) Glucose 85 (74-106) mg/dL Calcium 8.1 L (8.5-10.1) mg/dL Magnesium 1.9 (1.8-2.4) mg/dL Med Orders - Current: Current Medications Acetaminophen (Tylenol) 650 mg PO Q4H PRN PRN Reason: Pain (Mild 1-3)/fever Last Admin: 04/26/17 22:42 Dose: 650 mg Albuterol (Proventil Neb Soln) 2.5 mg NEB Q4H PRN PRN Reason: Shortness Of Breath/wheezing Aspirin (Ecotrin) 325 mg PO DAILY [facility] Last Admin: 04/28/17 09:02 Dose: 325 mg Clopidogrel Bisulfate (Plavix) 75 mg PO DAILY [facility] Last Admin: 04/28/17 09:02 Dose: 75 mg Docusate Sodium (Colace) 100 mg PO BID PRN PRN Reason: Constipation Hydrochlorothiazide (Hydrochlorothiazide) 12.5 mg PO DAILY [facility] Last Admin: 04/28/17 09:02 Dose: 12.5 mg Losartan Potassium (Cozaar) 50 mg PO DAILY [facility] Last Admin: 04/28/17 09:01 Dose: 50 mg Magnesium Hydroxide (Milk Of Magnesia) 30 ml PO Q12H PRN PRN Reason: Constipation Magnesium Oxide (Magnesium Oxide) 400 mg PO BID [facility] Last Admin: 04/28/17 09:02 Dose: 400 mg Nicotine (Habitrol) 21 mg TRDERM DAILY [facility] Last Admin: 04/28/17 09:02 Dose: 21 mg Ondansetron HCl (Zofran) 4 mg IV Q4H PRN PRN Reason: Nausea/Vomiting Oxycodone HCl (Oxycodone) 5 mg PO Q4H PRN PRN Reason: Pain (moderate 4-6) Last Admin: 04/28/17 04:59 Dose: 5 mg Pantoprazole Sodium (Protonix Iv) 40 mg IV Q12H [facility] Last Admin: 04/28/17 05:00 Dose: 40 mg Polyethylene Glycol (Miralax) 17 gm PO DAILY PRN PRN Reason: Constipation Sodium Chloride (Saline Flush) 10 ml FLUSH ASDIRECTED PRN PRN Reason: Keep Vein Open Zolpidem Tartrate (Ambien) 5 mg PO BEDTIME PRN PRN Reason: Insomnia Last Admin: 04/27/17 22:04 Dose: 5 mg Discontinued Medications Bisacodyl (Dulcolax) 10 mg PO ONETIME ONE Stop: 04/26/17 17:01 Last Admin: 04/26/17 17:50 Dose: 10 mg Bisacodyl (Dulcolax) 10 mg PO ONETIME ONE Stop: 04/26/17 21:01 Last Admin: 04/26/17 20:07 Dose: 10 mg Fentanyl (Sublimaze) Confirm Administered Dose 100 mcg .ROUTE .STK-MED ONE Stop: 04/27/17 11:50 Ferric Sodium Gluconate Complex 250 mg/ Sodium Chloride 120 mls @ 60 mls/hr IV Q24H [facility] Stop: 04/27/17 19:59 Last Admin: 04/27/17 18:02 Dose: 60 mls/hr Sodium Chloride (Normal Saline) 1,000 mls @ 75 mls/hr IV ASDIRECTED [facility] Last Admin: 04/27/17 13:13 Dose: 75 mls/hr Potassium Chloride 40 meq/ (Premix) 100 mls @ 25 mls/hr IV ONETIME ONE Stop: 04/26/17 21:32 Last Admin: 04/27/17 16:43 Dose: Not Given Potassium Chloride 20 meq/ (Premix) 100 mls @ 50 mls/hr IV Q2H [facility] Stop: 04/27/17 02:36 Last Admin: 04/27/17 01:57 Dose: 50 mls/hr Magnesium Sulfate 2 gm/ Premix 50 mls @ 25 mls/hr IV ONETIME ONE Stop: 04/27/17 10:59 Last Admin: 04/27/17 08:42 Dose: 25 mls/hr Lidocaine HCl (Xylocaine 1%) 2 ml .XX ASDIRECTED [facility] Stop: 04/27/17 03:00 Lidocaine HCl (Xylocaine-Mpf 1%) Confirm Administered Dose 5 ml .ROUTE .STK-MED ONE Stop: 04/26/17 22:46 Last Admin: 04/26/17 23:26 Dose: 2 ml Midazolam HCl (Versed 1 Mg/Ml) Confirm Administered Dose 2 mg .ROUTE .STK-MED ONE Stop: 04/27/17 11:51 Polyethylene Glycol (Miralax) 238 gm PO ONETIME ONE Stop: 04/26/17 18:01 Last Admin: 04/26/17 17:51 Dose: 1 bottle Potassium Chloride (Klor-Con M20) 40 meq PO ONETIME ONE Stop: 04/26/17 17:34 Last Admin: 04/26/17 17:50 Dose: 40 meq Propofol (Diprivan 20 Ml) Confirm Administered Dose 200 mg .ROUTE .STK-MED ONE Stop: 04/27/17 11:50 *Q Meaningful Use (DIS) - VTE *Q VTE Criteria *Q: VTE Mechanical Contraindications *Q: Bilateral Lower Ischemia VTE Pharmacological Contraindications *Q: Patient has Severe Anemia - Stroke *Q Stroke Criteria *Q: - AMI *Q AMI Criteria *Q:
--- NOTE | 2017-04-30 07:51 | OR ---
DATE OF PROCEDURE: 04/27/2017 PROCEDURE: 1. EGD. 2. Colonoscopy. FINDINGS: 1. Inflammation in the duodenum consistent with duodenitis, prominence of one of the folds, which was also biopsied x4. 2. Gastritis, mild. 3. Esophageal ulcer, healing. 4. Diverticulosis, mild. COMPLICATIONS: None. ORE BRIDGE OPERATOR: None. ANESTHESIA: MAC. PREOPERATIVE DIAGNOSIS: Anemia. POSTOPERATIVE DIAGNOSIS: Anemia. RISKS: Risks, benefits, alternatives, limitations including, but not limited to infection, bleeding, and perforation explained to the patient and wished to proceed. PROCEDURE IN DETAIL: The patient was placed in left lateral decubitus position. The EGD scope was introduced and advanced atraumatically to the second part of the duodenum. Within the first part of the duodenum, there was a prominence of one of the fold. This is most likely benign. However, this is associated with duodenitis and this was biopsied x6 using cold biopsy forceps. The scope was brought back into the stomach and retroflexed. Small hiatal hernia. The patient had healing esophageal ulcer. This was not biopsied due to the concern of rebleeding. The esophagus was normal. Digital rectal exam was performed without abnormality. Scope was advanced atraumatically into the ileocecal valve. A photo was taken of this. The scope was brought back through the ascending, transverse, descending colon and retroflexed. No evidence of old or new blood. The diverticulosis was noted, which could be described as mild. No abnormalities on retroflexion. The patient tolerated the procedure well. Joes Raul Tipton MD /[id number]
== END 2017-04-28 14:29 | disposition home or self-care (01) | DRG 811 ==
LOC: JP.ED 13:02 → JP.MS 15:53
PROVIDERS: ADMIT Hospitalist; ATTEND Hospitalist
PROC: 30233N1 Transfusion of Nonautologous Red Blood Cells into Peripheral Vein, Percutaneous Approach (ICD-10-PCS; principal; 2017-04-26)
PROC: 0DB98ZX Excision of Duodenum, Via Natural or Artificial Opening Endoscopic, Diagnostic (ICD-10-PCS; 2017-04-27)
PROC: 0DJD8ZZ Inspection of Lower Intestinal Tract, Via Natural or Artificial Opening Endoscopic (ICD-10-PCS; 2017-04-27)
DX: D50.9 Iron deficiency anemia, unspecified (principal); D50.0 Iron deficiency anemia secondary to blood loss (chronic); K22.11 Ulcer of esophagus with bleeding; I12.9 Hypertensive chronic kidney disease with stage 1 through stage 4 chronic kidney disease, or unspecified chronic kidney disease; N18.3 Chronic kidney disease, stage 3 (moderate); I73.9 Peripheral vascular disease, unspecified; Z95.2 Presence of prosthetic heart valve; Z87.891 Personal history of nicotine dependence; R53.1 Weakness; R20.0 Anesthesia of skin; E87.6 Hypokalemia; M21.372 Foot drop, left foot; M54.16 Radiculopathy, lumbar region; K29.70 Gastritis, unspecified, without bleeding; K44.9 Diaphragmatic hernia without obstruction or gangrene; K57.30 Diverticulosis of large intestine without perforation or abscess without bleeding; K29.80 Duodenitis without bleeding; Z79.82 Long term (current) use of aspirin; E83.42 Hypomagnesemia; Z85.42 Personal history of malignant neoplasm of other parts of uterus
CPT/HCPCS: 36415; 36430; 70450; 70450-26; 72148; 80048; 81001; 82272; 82607; 82746; 83550; 83615; 83735; 84484; 85018; 85025; 85027; 86850; 86900; 86901; 86920; 86922; 88305; 93880; 93880-26; 93926-26; 93926-LT; 96374; 97110-GP; 97162-GP; 97530-GP; 99285; 99285-25; A9270-GY; C9113; J2250; J2704; J2916; J3010; J3475; J3480; J7030; J7040; P9016